=== PATIENT | male | born 1980 | race Caucasian/White ===

== ENCOUNTER → 2024-01-06 06:28 | Day surgery (SDC) | payer OTHER, SELFPAY | LOC: GI 06:28 | PROVIDERS: ATTENDING PHYSICIAN Surgery | DX: Z80.0 Family history of malignant neoplasm of digestive organs (principal); Z12.11 Encounter for screening for malignant neoplasm of colon; D12.5 Benign neoplasm of sigmoid colon; D12.3 Benign neoplasm of transverse colon | CPT/HCPCS: 45385; 88305 ==

== ENCOUNTER 2024-04-19 10:01 | Emergency (ER) | payer OTHER, SELFPAY ==
[2024-04-19 10:19] VITALS: BP 153/89
--- NOTE | 2024-04-19 11:13 | ED.SKININJ ---
HPI-Injury
<Ish Pan PA-C - Last Filed: 04/19/24 13:46>
General
Chief Complaint: Skin Problem
Source: patient
Exam Limitations: none
Time Seen by Provider: 04/19/24 11:03
History of Present Illness-Injury
Initial Injury comments:
43-year-old male otherwise healthy presents complaining of increasing redness swelling and pain to the anterior right brown. He hit the corner of a deck several days ago and noticed it started getting red. He seen in urgent care 3 days ago was
given a shot of Rocephin and started on Keflex. He has had 2 and half days worth of Keflex. He notes increasing pain redness and swelling with persistent drainage to the anterior brown. He also felt that his heart was racing today. No chills or
sweats. No measurable fever. He is not diabetic. No other complaints at this time
Past History
<Ish Pan PA-C - Last Filed: 04/19/24 13:46>
Past History
ED Past Medical History: None
ED Past Surgical History: None
Social History
Tobacco: Non-smoker
Drug: None
Living: senior living
Employment: Employed
Phy Exam
<CAL Nova Last Filed: 04/19/24 13:46>
Physical Exam
Physical Exam:
General: Well-appearing male nontoxic no acute respiratory distress
HEENT: Normocephalic atraumatic
Skin: Open wound measuring about less than half a centimeter to the anterior right brown. This is surrounded by induration and erythema.
Of demarcation that was drawn 2 days ago by the urgent care has been surpassed by the erythema.
Vascular: 2+ dorsalis pedis pulse bilateral feet
Heart: Regular rate and rhythm no audible murmurs
Course
<Ish Pan PA-C - Last Filed: 04/19/24 13:46>
Orders/Labs/Results
Orders:
Orders
04/19/24 10:26
Electrocardiogram (*1) Urgent
Reason for Study: Bradycardia / Tachycardia
EKG- Treatment ONCE
04/19/24 11:09
CR Leg Tibia/fibula Right 2 Vw Urgent
Comment:
Reason For Exam: injury with infection anterior brown
04/19/24 12:15
Complete Blood Count/With Diff Urgent
Comprehensive Metabolic Panel Urgent
04/19/24 13:34
Wound Culture [Wound/Abscess/Other Culture] Urgent
KULWANT Source: Leg
Specimen Description: Right
Date Specimen was Collected: 04/19/24
Time Specimen was Collected: 13:37
Abnormal Lab Results
04/19/24
12:15
MCH 31.2 H pg
(27.0-31.0)
Eosinophils % 8.7 H %
(0-6)
Alkaline Phosphatase 139 H U/L
(38-126)
04/19/24 12:15
04/19/24 12:15
Vital Signs
Initial and Last Documented VS:
Initial Vital Signs
Temp Pulse BP Pulse Ox
98.1 F 99 153/89 100
04/19/24 10:19 04/19/24 10:19 04/19/24 10:19 04/19/24 10:19
Last Documented Vital Signs
Temp Pulse BP Pulse Ox
98.1 F 72 153/89 100
04/19/24 10:19 04/19/24 13:34 04/19/24 10:19 04/19/24 13:16
<Yao Brito DO - Last Filed: 04/19/24 13:38>
Orders/Labs/Results
Orders:
Orders
04/19/24 10:26
Electrocardiogram (*1) Urgent
Reason for Study: Bradycardia / Tachycardia
EKG- Treatment ONCE
04/19/24 11:09
CR Leg Tibia/fibula Right 2 Vw Urgent
Comment:
Reason For Exam: injury with infection anterior brown
04/19/24 12:15
Complete Blood Count/With Diff Urgent
Comprehensive Metabolic Panel Urgent
04/19/24 13:34
Wound Culture [Wound/Abscess/Other Culture] Urgent
KULWANT Source: Leg
Specimen Description: Right
Date Specimen was Collected: 04/19/24
Time Specimen was Collected: 13:37
Abnormal Lab Results
04/19/24
12:15
MCH 31.2 H pg
(27.0-31.0)
Eosinophils % 8.7 H %
(0-6)
Alkaline Phosphatase 139 H U/L
(38-126)
04/19/24 12:15
04/19/24 12:15
Vital Signs
Pulse: 72
Initial and Last Documented VS:
Initial Vital Signs
Temp Pulse BP Pulse Ox
98.1 F 99 153/89 100
04/19/24 10:19 04/19/24 10:19 04/19/24 10:19 04/19/24 10:19
Last Documented Vital Signs
Temp Pulse BP Pulse Ox
98.1 F 72 153/89 100
04/19/24 10:19 04/19/24 13:34 04/19/24 10:19 04/19/24 13:16
<Ish Pan PA-C - Last Filed: 04/19/24 13:46>
*Critical Care Note
Total Time (30-74mins, 75-104mins- exclusive of procedures): Not Applicable
<Ish Pan PA-C - Last Filed: 04/19/24 13:46>
Update Note
Update Note:
Patient with worsening cellulitis of the right leg following trauma to the anterior brown. X-rays pending to evaluate for bony injury. Labs pending.
White count normal afebrile here heart rate has normalized.
Do suspect cellulitis she does have a history of MRSA. Will add Bactrim for MRSA coverage. He is not diabetic and is nontoxic. Reasonable for discharge with oral antibiotics and return precautions given
ED Attending Note
<Ish Pan PA-C - Last Filed: 04/19/24 13:46>
-
Portions of this chart may have been created with voice recognition software.� Occasional wrong word or��sound alike� substitutions may have occurred due to the inherent limitations of voice recognition software.
<Yao Brito DO - Last Filed: 04/19/24 13:38>
ED Attending Note
Patient seen and examined by attending physician: Yes
I performed the substantive portion of visit, reviewed & personally made and approve the management plan that is documented in note by myself or KONSTANTIN.: Yes
I performed a history and physical exam of patient and discussed management with resident, I reviewed resident's note and agree with documented findings and plan of care.: Yes
ED Attending Note:
I evaluated the patient at bedside. There is a small subcentimeter area of purulence for which I have ordered a culture. His heart rate has spontaneously improved down to 72 on reassessment at 1:30 PM. He feels comfortable going home. Will add
additional antibiotic for MRSA coverage as he has had MRSA in the past.
Discharge Plan
Departure
Patient Disposition: Home (Routine Discharge)
Date of Disposition: 04/19/24
Time of Disposition: 13:43
Patient with high blood pressure during this ER visit?: No
Discharge Problem:
Cellulitis
Instructions: Cellulitis (Skin Infection), Adult (DC)
Prescriptions:
New
sulfamethoxazole-trimethoprim [Bactrim DS] 800-160 mg tablet
1 tab PO BID Qty: 14 0RF
No Action
fluticasone propion-salmeterol 250-50 mcg/dose Blister With Device
1 inh INHALATION R BID
sulfamethoxazole-trimethoprim 400-80 mg Tablet
1 tab PO DIRECTED
Patient Comments:
04/19/2024, filled on 04/16/2024 and instructed to take 1 tablet TID for 3 days and then 1 tablet BID for 7 days.
acetaminophen [Tylenol Extra Strength] 500 mg Tablet
1,000 mg PO DAILYPRN PRN (Reason: mild pain)
cephalexin 500 mg Capsule
500 mg PO QID
Patient Comments:
04/19/2024, filled on 04/16/2024 and instructed to take one capsule QID for 10 days.
albuterol sulfate 90 mcg/actuation Hfa Aerosol Inhaler
2 puff INHALATION R Q6HPRN PRN (Reason: wheeze)
Sublocade 300 mg/1.5 mL Solution, Extended Rel Syringe
300 mg SC Q28D
Referrals:
Rodrigo Zambrano DO [Family Provider] -
Activity Restrictions/Additional Instructions:
Continue taking Keflex. Please add Bactrim to the regimen which is twice a day. Please return here for fever or worsening redness pain or other concerning findings. Follow-up with family doctor otherwise
Interventions
Interventions:
*ED COVID-19 Vaccine History Last Done: 04/19/24 10:24
ED-Skin Assessment Last Done: 04/19/24 12:19
Discharge Date and Time
Print Language: ANGUILLAN
[2024-04-19 12:22] LABS: % Eosinophils 8.7 % (0-6); % Immature Granulocytes 0.3 % (0-0.5); % Lymphocytes 21.9 % (20.5-51.1); % Monocytes 7.6 % (1.7-9.3); % Neutrophils 60.5 % (42.2-75.2); Absolute Basophils 0.1 10^3/uL (0-0.2); Absolute Eosinophils 0.6 10^3/uL (0-0.7); Absolute Lymphocytes 1.6 10^3/uL (1.2-3.4); Absolute Monocytes 0.6 10^3/uL (0.1-0.6); Absolute Neutrophils 4.5 10^3/uL (1.4-6.5); Hematocrit 42.3 % (39.0-52.0); Hemoglobin 15.3 g/dL (13.0-18.0); Mean Corp Hgb Conc. 36.2 g/dL (33.0-37.0); Mean Corpuscular Hgb 31.2 pg (27.0-31.0); Mean Corpuscular Volume 86.2 fL (80.0-94.0); Mean Platelet Volume 9.1 fL (7.4-10.4); Nucleated Red Blood Cells % 0 % (-); Platelet Count 226 10^3/uL (130-400); Red Blood Cell Count 4.91 10^6/uL (4.70-6.10); Red Cell Dist. Width 12.5 % (11.5-14.5); White Blood Cell Count 7.4 10^3/uL (4.8-10.8)
[2024-04-19 12:41] LABS: ALT (SGPT) 26 U/L (0-50); AST (SGOT) 31 U/L (17-59); Albumin 4.5 g/dl (3.5-5.0); Alkaline Phosphatase 139 U/L (38-126); Blood Urea Nitrogen 15 mg/dl (9-20); Calcium 9.9 mg/dl (8.4-10.2); Carbon Dioxide 29 mmol/L (22-30); Chloride 101 mmol/L (98-107); Glucose 96 mg/dl (70-99); Potassium 4.8 mmol/L (3.5-5.1); Sodium 140 mmol/L (135-145); Total Bilirubin 0.6 mg/dl (0.2-1.3); Total Protein 7.7 g/dl (6.3-8.2); eGFR > 60.00
[2024-04-19] MEDS: BACTRIM DS 800 MG/160 MG 1 TABLET PO (13:49)
== END 2024-04-19 14:16 | disposition home or self-care (01) ==
LOC: EMR 10:01
PROVIDERS: Physician Assistant; EMERGENCY PHYSICIAN Emergency Medicine; FAMILY PHYSICIAN Family Medicine
DX: L03.115 Cellulitis of right lower limb (principal)
CPT/HCPCS: 99283; 73590; 80053; 85025; 87070; 87147; 87186; 87205; 93005